=== PATIENT | male | born 1955 | race Two or more races ===

== ENCOUNTER 2020-12-16 10:15 | Emergency (ER) | payer OTHER ==
[2020-12-16 10:29] VITALS: BP 135/66; PULSE 110; TEMP 98.2; BMI 37.0
[2020-12-16] MEDS ORDERED: ACETAMINOPHEN 500 MG TABLET (FP) PO ONE (10:54)
[2020-12-16] MEDS ORDERED: ACETAMINOPHEN 325 MG TABLET (FP) ONE (10:56)
== END 2020-12-16 11:49 | disposition home or self-care (01) ==
LOC: JER 10:15
DX: M79.10 Myalgia, unspecified site (principal)
CPT/HCPCS: 71046-TC-FY; 99284-25; C9803; U0003

== ENCOUNTER 2020-12-19 10:11 | Emergency (ER) | payer OTHER ==
[2020-12-19 10:30] VITALS: BMI 31.1
[2020-12-19] MEDS ORDERED: SODIUM CHLORIDE 0.9% 500 ML INFUS.BAG IV ONE (10:53)
[2020-12-19] MEDS ORDERED: BAMLANIVIMAB 700 MG in SODIUM CHLORIDE 250 ML IVPB ONE (11:40)
[2020-12-19 12:25] LABS: BASO % 0.1 % (0-2.0); EOS % 0.1 % (0-4.5); HEMATOCRIT 42.9 % (35.4-49); HEMOGLOBIN 14.8 GM/dL (11.7-16.9); LYMPH % 7.9 % (8-40); MCH 31.2 pg (25.7-33.7); MCHC 34.6 g/dl (32.0-35.9); MEAN CELL VOLUME 90.3 fl (80-96); MEAN PLT VOLUME 7.1 fl (7.5-11.1); MONO % 10.3 % (3.8-10.2); NEUT % 81.6 % (42.8-82.8); PLATELET COUNT 317 K/MM3 (134-434); RBC 4.75 M/mm3 (4.00-5.60); RDW 12.4 % (11.9-15.9); WHITE BLOOD COUNT 5.1 K/mm3 (4.0-10.0)
[2020-12-19 12:44] LABS: ALBUMIN 3.7 g/dl (3.4-5.0); CALCIUM 8.7 mg/dL (8.5-10.1)
[2020-12-19 12:48] LABS: CREATININE 1.1 mg/dL (0.55-1.3)
[2020-12-19 12:50] LABS: BILIRUBIN,TOTAL 0.4 mg/dL (0.2-1); TOT PROT 7.8 g/dl (6.4-8.2)
[2020-12-19 12:52] LABS: BLOOD UREA NITROGEN 11.2 mg/dL (7-18)
[2020-12-19 15:05] VITALS: BP 126/68; PULSE 85; TEMP 97.8
== END 2020-12-19 15:55 | disposition home or self-care (01) ==
LOC: JCOVINFU 10:11 → JER 10:11 → JCOVINFU 15:55
DX: R53.83 Other fatigue (principal)
CPT/HCPCS: 36415; 80053; 85025; 99284-25; M0239; Q0239

== ENCOUNTER 2021-09-12 23:52 | Observation (INO) | payer OTHER ==
[2021-09-13 02:35] LABS: BASO % 0.2 % (0-2.0); EOS % 0.9 % (0-4.5); HEMATOCRIT 33.6 % (35.4-49); HEMOGLOBIN 11.3 GM/dL (11.7-16.9); MCH 31.3 pg (25.7-33.7); MCHC 33.7 g/dl (32.0-35.9); MEAN PLT VOLUME 7.7 fl (7.5-11.1); MONO % 6.5 % (3.8-10.2); NEUT % 80.4 % (42.8-82.8); PLATELET COUNT 196 10^3/uL (134-434); RBC 3.61 M/mm3 (4.00-5.60); RDW 12.5 % (11.9-15.9); WHITE BLOOD COUNT 8.2 K/mm3 (4.0-10.0)
[2021-09-13 02:46] LABS: INR 0.95 (0.83-1.09); PROTHROMBIN TIME (PATIENT) 11.1 SEC (9.7-13.0)
[2021-09-13 02:48] LABS: ACTIVATED PTT 29.3 SECONDS (25.2-36.5)
[2021-09-13 02:55] LABS: CALCIUM 8.2 mg/dL (8.5-10.1)
[2021-09-13 02:56] LABS: ALBUMIN 3.4 g/dl (3.4-5.0); BLOOD UREA NITROGEN 10.9 mg/dL (7-18); MAGNESIUM 1.8 mg/dL (1.8-2.4)
[2021-09-13 03:00] LABS: BILIRUBIN,TOTAL 0.2 mg/dL (0.2-1)
[2021-09-13 03:01] LABS: TOT PROT 6.9 g/dl (6.4-8.2)
[2021-09-13 03:42] LABS: LACTIC ACID 2.6 mmol/L (0.4-2.0)
[2021-09-13] MEDS ORDERED: LACTATED RINGERS SOLUTION 1,000 ML/1,000 ML INFUS.BAG IV STA (03:46)
[2021-09-13] MEDS ORDERED: SIMETHICONE 40 MG/0.6 ML BOTTLE PO ONE (06:06)
[2021-09-13] MEDS ORDERED: MAG HYDROX/AL HYDROX/SIMETH 30 ML UNIT-DOSE CUP PO PRN (06:33)
[2021-09-13] MEDS ORDERED: TAMSULOSIN HCL 0.4 MG CAP PO ONE (06:34)
[2021-09-13] MEDS ORDERED: SODIUM CHLORIDE 1,000 ML IV SCH (06:45)
[2021-09-13] MEDS ORDERED: ACETAMINOPHEN 1000 MG/100 ML VIAL IVPB PRN (07:06)
[2021-09-13] MEDS: INSULIN (NOVOLOG) ASPART 100 UNITS/ML 10ML VIAL SQ SCH ×2 (07:20→11:21)
[2021-09-13 08:09] LABS: CALCIUM 8.3 mg/dL (8.5-10.1)
[2021-09-13 08:10] LABS: ALBUMIN 3.1 g/dl (3.4-5.0); BLOOD UREA NITROGEN 9.1 mg/dL (7-18); MAGNESIUM 1.8 mg/dL (1.8-2.4)
[2021-09-13 08:13] LABS: PHOSPHOROUS 2.5 mg/dL (2.5-4.9)
[2021-09-13 08:14] LABS: BILIRUBIN,TOTAL 0.3 mg/dL (0.2-1)
[2021-09-13 08:15] LABS: TOT PROT 6.4 g/dl (6.4-8.2)
[2021-09-13 08:25] LABS: LACTIC ACID 2.3 mmol/L (0.4-2.0)
[2021-09-13] MEDS ORDERED: SODIUM CHLORIDE 500 ML IV STA (08:44)
[2021-09-13] MEDS ORDERED: amLODIPine BESYLATE 5 MG TABLET (FP) PO SCH (10:00)
[2021-09-13] MEDS: ENOXAPARIN NA (PORCINE) 40 MG/0.4 ML DISP.SYRIN SQ SCH (11:35)
[2021-09-13 16:41] LABS: LACTIC ACID 3.3 mmol/L (0.4-2.0)
[2021-09-13] MEDS ORDERED: ATENOLOL 25 MG TABLET (FP) ONE (17:15)
[2021-09-13] MEDS: ASPIRIN COATED 81 MG TABLET.EC PO SCH (17:15)
[2021-09-13] MEDS: ATENOLOL 25 MG TABLET (FP) PO SCH (17:15)
[2021-09-13] MEDS ORDERED: ASPIRIN COATED 81 MG TABLET.EC ONE (17:15)
[2021-09-13] MEDS: LISINOPRIL 20 MG TABLET PO SCH (17:15)
[2021-09-13] MEDS ORDERED: LISINOPRIL 20 MG TABLET ONE (17:16)
[2021-09-13] MEDS: INSULIN SLIDING SCALE (NOVOLOG) 1 VIAL SQ SCH ×2 (17:32→21:31)
[2021-09-13 18:35] VITALS: BMI 23.8
[2021-09-13] MEDS ORDERED: ATORVASTATIN CA 10 MG TABLET (FP) PO SCH (22:00)
[2021-09-14] MEDS: INSULIN SLIDING SCALE (NOVOLOG) 1 VIAL SQ SCH ×3 (06:26→16:47)
[2021-09-14 06:38] LABS: PH,URINE 5.5 (5.0-8.0); URINE APPEARANCE CLEAR; URINE BILIRUBIN NEGATIVE (NEGATIVE); URINE COLOR YELLOW; URINE GLUCOSE (UA) NEGATIVE (NEGATIVE); URINE KETONE NEGATIVE (NEGATIVE); URINE LEUK ESTERASE NEGATIVE (NEGATIVE); URINE NITRITE NEGATIVE (NEGATIVE); URINE PROTEIN NEGATIVE (NEGATIVE); URINE UROBILINOGEN 0.2 mg/dL (0.2-1.0)
[2021-09-14] MEDS ORDERED: SODIUM CHLORIDE 1,000 ML IV SCH (07:15)
[2021-09-14 08:00] LABS: HEMATOCRIT 34.5 % (35.4-49); HEMOGLOBIN 11.9 GM/dL (11.7-16.9); MCH 31.6 pg (25.7-33.7); MCHC 34.5 g/dl (32.0-35.9); MEAN CELL VOLUME 91.6 fl (80-96); MEAN PLT VOLUME 7.7 fl (7.5-11.1); PLATELET COUNT 201 10^3/uL (134-434); RBC 3.77 M/mm3 (4.00-5.60); RDW 12.4 % (11.9-15.9); WHITE BLOOD COUNT 5.7 K/mm3 (4.0-10.0)
[2021-09-14 08:17] LABS: CALCIUM 9.1 mg/dL (8.5-10.1)
[2021-09-14 08:18] LABS: MAGNESIUM 1.9 mg/dL (1.8-2.4)
[2021-09-14 08:20] LABS: ALBUMIN 3.3 g/dl (3.4-5.0); BLOOD UREA NITROGEN 8.9 mg/dL (7-18)
[2021-09-14 08:21] LABS: CREATININE 1.1 mg/dL (0.55-1.3)
[2021-09-14 08:23] LABS: PHOSPHOROUS 3.8 mg/dL (2.5-4.9); TOT PROT 6.7 g/dl (6.4-8.2)
[2021-09-14 08:24] LABS: BILIRUBIN,TOTAL 0.4 mg/dL (0.2-1)
[2021-09-14] MEDS ORDERED: TAMSULOSIN HCL 0.4 MG CAP PO SCH ×2 (08:30)
[2021-09-14] MEDS: ASPIRIN COATED 81 MG TABLET.EC PO SCH (09:00)
[2021-09-14] MEDS: ENOXAPARIN NA (PORCINE) 40 MG/0.4 ML DISP.SYRIN SQ SCH (09:01)
[2021-09-14] MEDS: ATENOLOL 25 MG TABLET (FP) PO SCH (09:01)
[2021-09-14] MEDS: LISINOPRIL 20 MG TABLET PO SCH (09:01)
[2021-09-14] MEDS ORDERED: CHLORTHALIDONE 25 MG TABLET PO SCH (10:00)
[2021-09-14 16:13] LABS: LACTIC ACID 2.1 mmol/L (0.4-2.0)
[2021-09-14] MEDS ORDERED: SODIUM CHLORIDE 500 ML IV STA (16:18)
[2021-09-14 18:24] VITALS: BP 143/79; PULSE 64; TEMP 98
== END 2021-09-14 18:24 | disposition home or self-care (01) ==
LOC: JER 23:52 → SUATTDRO 23:52 → JERBED 09-13 06:09 → J4S 09-13 18:08
PROVIDERS: ATTEND Internal Medicine
PROC: 3E033NZ Introduction of Analgesics, Hypnotics, Sedatives into Peripheral Vein, Percutaneous Approach (ICD-10-PCS; principal; 2021-09-13)
PROC: 3E023GC Introduction of Other Therapeutic Substance into Muscle, Percutaneous Approach (ICD-10-PCS; 2021-09-13)
PROC: 3E0337Z Introduction of Electrolytic and Water Balance Substance into Peripheral Vein, Percutaneous Approach (ICD-10-PCS; 2021-09-13)
DX: R10.84 Generalized abdominal pain (principal); R07.89 Other chest pain; R79.89 Other specified abnormal findings of blood chemistry; M54.9 Dorsalgia, unspecified; E11.9 Type 2 diabetes mellitus without complications; I10 Essential (primary) hypertension; N40.0 Benign prostatic hyperplasia without lower urinary tract symptoms; Z86.16 Personal history of COVID-19; Z29.9 Encounter for prophylactic measures, unspecified
CPT/HCPCS: 36415; 71045-TC-FY; 71275-TC; 74174-TC; 80053; 80061; 81003; 82550; 82962; 83036; 83605; 83690; 83735; 83880; 84100; 84484; 85025; 85027; 85610; 85730; 87086; 93005; 93010; 93306-TC; 96361; 96372; 96374; 99285-25; C9803; G0378; J0131; Q9967; U0003; U0005

== ENCOUNTER 2023-10-09 22:24 | Emergency (ER) | payer OTHER ==
[2023-10-09 22:30] VITALS: BP 143/86; PULSE 112; RESP 18; TEMP 97.8; BMI 27.6
[2023-10-10 00:44] LABS: BASO % 1.3 % (0-2.0); EOS % 2.8 % (0-4.5); HEMATOCRIT 39.7 % (35.4-49); HEMOGLOBIN 13.3 GM/dL (11.7-16.9); LYMPH % 18.1 % (8-40); MCH 30.4 pg (25.7-33.7); MCHC 33.3 g/dl (32.0-35.9); MEAN CELL VOLUME 91.1 fl (80-96); MEAN PLT VOLUME 7.3 fl (7.5-11.1); MONO % 10.4 % (3.8-10.2); NEUT % 67.4 % (42.8-82.8); PLATELET COUNT 204 10^3/uL (134-434); RBC 4.36 M/mm3 (4.00-5.60); WHITE BLOOD COUNT 4.8 K/mm3 (4.0-10.0)
[2023-10-10 01:09] LABS: CALCIUM 9.4 mg/dL (8.5-10.1)
[2023-10-10 01:11] LABS: ALBUMIN 3.8 g/dl (3.4-5.0); BLOOD UREA NITROGEN 14.7 mg/dL (7-18); MAGNESIUM 1.9 mg/dL (1.8-2.4); POTASSIUM 4.3 mmol/L (3.5-5.1)
[2023-10-10 01:14] LABS: CREATININE 1.2 mg/dL (0.55-1.3)
[2023-10-10 01:15] LABS: BILIRUBIN,TOTAL 0.3 mg/dL (0.2-1); TOT PROT 7.4 g/dl (6.4-8.2)
[2023-10-10] MEDS ORDERED: KETOROLAC TROMETHAMINE 30 MG/1 ML VIAL IM ONE (02:02)
[2023-10-10] MEDS ORDERED: KETOROLAC TROMETHAMINE 30 MG/1 ML VIAL ONE (02:12)
== END 2023-10-10 02:23 | disposition home or self-care (01) ==
LOC: JER 22:24
PROC: 3E0233Z Introduction of Anti-inflammatory into Muscle, Percutaneous Approach (ICD-10-PCS; principal; 2023-10-10)
DX: G62.9 Polyneuropathy, unspecified (principal)
CPT/HCPCS: 36415; 80053; 82962; 83735; 85025; 99284-25

== ENCOUNTER 2024-03-27 19:36 | Inpatient (IN) | payer OTHER ==
[2024-03-27 19:43] VITALS: BMI 27.2
[2024-03-27] MEDS ORDERED: DIPHTH,PERTUSS(ACELL),TET 0.5 ML DISP.SYRIN IM ONE (20:37)
[2024-03-27] MEDS ORDERED: ACETAMINOPHEN 500 MG TABLET (FP) ONE (20:38)
[2024-03-27] MEDS: ACETAMINOPHEN 500 MG TABLET (FP) PO ONE (20:43)
[2024-03-27] MEDS: DIPHTH,PERTUSS(ACELL),TET 0.5 ML DISP.SYRIN IM ONE (20:44)
[2024-03-27 23:05] LABS: BASO % 0.9 % (0-2.0); EOS % 0.3 % (0-4.5); HEMATOCRIT 40.5 % (35.4-49); HEMOGLOBIN 13.8 GM/dL (11.7-16.9); LYMPH % 9.2 % (8-40); MCH 30.9 pg (25.7-33.7); MEAN PLT VOLUME 7.7 fl (7.5-11.1); MONO % 6.7 % (3.8-10.2); NEUT % 82.9 % (42.8-82.8); PLATELET COUNT 181 10^3/uL (134-434); RBC 4.45 M/mm3 (4.00-5.60); RDW 12.5 % (11.9-15.9)
[2024-03-27 23:16] LABS: INR 0.99 (0.83-1.09); PROTHROMBIN TIME (PATIENT) 11.4 SEC (9.7-13.0)
[2024-03-27] MEDS: BACITRACIN ZINC 15 GM TUBE TOPICAL OINTMENT TP ONE (23:21)
[2024-03-27] MEDS: LIDOCAINE PATCH REMOVAL MC SCH (23:21)
[2024-03-27] MEDS ORDERED: BACITRACIN 0.9 GM PACKET ONE (23:22)
[2024-03-27] MEDS ORDERED: LIDOCAINE 4% PATCH TP ONE (23:23)
[2024-03-27] MEDS ORDERED: BACITRACIN ZINC 15 GM TUBE TOPICAL OINTMENT ONE (23:25)
[2024-03-27 23:26] LABS: POTASSIUM 3.6 mmol/L (3.5-5.1)
[2024-03-27 23:29] LABS: ALBUMIN 3.8 g/dl (3.4-5.0); BLOOD UREA NITROGEN 16.2 mg/dL (7-18)
[2024-03-27] MEDS: LIDOCAINE 4% PATCH TP ONE (23:31)
[2024-03-27 23:32] LABS: CREATININE 1.2 mg/dL (0.55-1.3)
[2024-03-27 23:33] LABS: TOT PROT 7.3 g/dl (6.4-8.2)
[2024-03-27 23:37] LABS: BILIRUBIN,TOTAL 0.4 mg/dL (0.2-1)
[2024-03-28] MEDS: metFORMIN HCL 500 MG TABLET (FP) PO SCH (06:09)
[2024-03-28 07:21] LABS: BASO % 0.2 % (0-2.0); EOS % 0.8 % (0-4.5); HEMOGLOBIN 13.4 GM/dL (11.7-16.9); MCH 31.2 pg (25.7-33.7); MCHC 33.6 g/dl (32.0-35.9); MEAN CELL VOLUME 92.9 fl (80-96); MEAN PLT VOLUME 7.9 fl (7.5-11.1); MONO % 8.6 % (3.8-10.2); NEUT % 79.4 % (42.8-82.8); PLATELET COUNT 177 10^3/uL (134-434); RDW 12.4 % (11.9-15.9); WHITE BLOOD COUNT 7.9 K/mm3 (4.0-10.0)
[2024-03-28 07:40] LABS: POTASSIUM 3.8 mmol/L (3.5-5.1)
[2024-03-28 07:46] LABS: BLOOD UREA NITROGEN 14.1 mg/dL (7-18); CALCIUM 9.4 mg/dL (8.5-10.1)
[2024-03-28 07:49] LABS: CREATININE 1.1 mg/dL (0.55-1.3)
[2024-03-28] MEDS: ENOXAPARIN NA (PORCINE) 40 MG/0.4 ML DISP.SYRIN SQ SCH (09:16)
[2024-03-28] MEDS: TAMSULOSIN HCL 0.4 MG CAP PO SCH (09:21)
[2024-03-28] MEDS: MUPIROCIN 2% TOPICAL OINTMENT FOR DECOLONIZATION NS SCH (09:21)
[2024-03-28] MEDS: GABAPENTIN 100 MG CAPSULE PO SCH (09:21)
[2024-03-28] MEDS: LISINOPRIL 20 MG TABLET PO SCH (10:51)
[2024-03-28] MEDS: ATENOLOL 50 MG TABLET (FP) PO SCH (10:52)
[2024-03-28] MEDS: PNEUMOC 20-VAL CONJ-DIP CRM/PF 0.5 ML SYRINGE IM ONE (11:24)
[2024-03-28] MEDS: ACETAMINOPHEN 325 MG TABLET (FP) PO PRN (13:13)
[2024-03-28] MEDS: CHLORHEXIDINE GLUCONATE 4% CLEANSER FOR DECOLONIZATION TP SCH (21:48)
[2024-03-29 07:54] LABS: CALCIUM 9.5 mg/dL (8.5-10.1)
[2024-03-29 07:55] LABS: BLOOD UREA NITROGEN 13.1 mg/dL (7-18); MAGNESIUM 1.6 mg/dL (1.8-2.4)
[2024-03-29 07:57] LABS: CREATININE 1.1 mg/dL (0.55-1.3)
[2024-03-29 07:58] LABS: PHOSPHOROUS 3.5 mg/dL (2.5-4.9)
[2024-03-29 07:59] LABS: BILIRUBIN,TOTAL 0.7 mg/dL (0.2-1); TOT PROT 7.7 g/dl (6.4-8.2)
[2024-03-29 08:04] LABS: BASO % 0.3 % (0-2.0); EOS % 0.9 % (0-4.5); HEMATOCRIT 43.2 % (35.4-49); HEMOGLOBIN 14.8 GM/dL (11.7-16.9); LYMPH % 16.2 % (8-40); MCH 31.4 pg (25.7-33.7); MCHC 34.2 g/dl (32.0-35.9); MEAN CELL VOLUME 91.8 fl (80-96); MEAN PLT VOLUME 8.2 fl (7.5-11.1); MONO % 8.7 % (3.8-10.2); NEUT % 73.9 % (42.8-82.8); PLATELET COUNT 197 10^3/uL (134-434); RDW 12.5 % (11.9-15.9); WHITE BLOOD COUNT 8.6 K/mm3 (4.0-10.0)
[2024-03-29] MEDS ORDERED: LIDOCAINE HCL 2% 100 MG/5 ML DISP.SYRIN ONE (10:10)
[2024-03-29] MEDS: LIDOCAINE HCL 2% 100 MG/5 ML DISP.SYRIN NR STA (15:54)
[2024-03-29] MEDS: LIDOCAINE 4% PATCH TP SCH (20:07)
[2024-03-29] MEDS: LIDOCAINE PATCH REMOVAL MC SCH (21:14)
[2024-03-30] MEDS: ACETAMINOPHEN 325 MG TABLET (FP) PO PRN (00:38)
[2024-03-30] MEDS: metFORMIN HCL 500 MG TABLET (FP) PO SCH (06:05)
[2024-03-30 09:18] LABS: HEMATOCRIT 40.7 % (35.4-49); HEMOGLOBIN 13.9 GM/dL (11.7-16.9); MCH 31.5 pg (25.7-33.7); MCHC 34.2 g/dl (32.0-35.9); PLATELET COUNT 175 10^3/uL (134-434); RBC 4.42 M/mm3 (4.00-5.60); RDW 12.2 % (11.9-15.9); WHITE BLOOD COUNT 7.6 K/mm3 (4.0-10.0)
[2024-03-30] MEDS: levETIRAcetam 500 MG TABLET (FP) PO SCH (09:23)
[2024-03-30] MEDS: GABAPENTIN 100 MG CAPSULE PO SCH (09:23)
[2024-03-30] MEDS: ATENOLOL 50 MG TABLET (FP) PO SCH (09:23)
[2024-03-30] MEDS: LISINOPRIL 20 MG TABLET PO SCH (09:23)
[2024-03-30] MEDS: TAMSULOSIN HCL 0.4 MG CAP PO SCH (09:24)
[2024-03-30 09:43] LABS: POTASSIUM 3.9 mmol/L (3.5-5.1)
[2024-03-30 09:44] LABS: BLOOD UREA NITROGEN 27.6 mg/dL (7-18); CALCIUM 8.7 mg/dL (8.5-10.1); MAGNESIUM 1.8 mg/dL (1.8-2.4)
[2024-03-30 09:48] LABS: CREATININE 1.4 mg/dL (0.55-1.3); PHOSPHOROUS 3.8 mg/dL (2.5-4.9)
[2024-03-30] MEDS ORDERED: MUPIROCIN 2% TOPICAL OINTMENT FOR DECOLONIZATION NS SCH (10:00)
[2024-03-30] MEDS: INSULIN ASPART SLIDING SCALE (NOVOLOG) 1 VIAL SQ SCH (11:39)
[2024-03-30 13:46] VITALS: RESP 18
[2024-03-30] MEDS ORDERED: LIDOCAINE PATCH REMOVAL MC SCH (22:00)
[2024-03-30] MEDS ORDERED: CHLORHEXIDINE GLUCONATE 4% CLEANSER FOR DECOLONIZATION TP SCH (22:00)
[2024-03-30] MEDS: GABAPENTIN 400 MG CAPSULE PO SCH (22:26)
[2024-03-30] MEDS: ATORVASTATIN CA 10 MG TABLET (FP) PO SCH (22:26)
[2024-03-31] MEDS: GABAPENTIN 300 MG CAPSULE PO SCH (09:56)
[2024-03-31 10:02] LABS: HEMATOCRIT 41.3 % (35.4-49); HEMOGLOBIN 14.1 GM/dL (11.7-16.9); MCH 31.4 pg (25.7-33.7); MCHC 34.1 g/dl (32.0-35.9); MEAN CELL VOLUME 92.2 fl (80-96); MEAN PLT VOLUME 8.2 fl (7.5-11.1); PLATELET COUNT 184 10^3/uL (134-434); RBC 4.48 M/mm3 (4.00-5.60); RDW 12.6 % (11.9-15.9); WHITE BLOOD COUNT 6.2 K/mm3 (4.0-10.0)
[2024-03-31 10:28] LABS: CALCIUM 9.1 mg/dL (8.5-10.1)
[2024-03-31 10:30] LABS: BLOOD UREA NITROGEN 24.1 mg/dL (7-18); MAGNESIUM 2.1 mg/dL (1.8-2.4)
[2024-03-31 10:32] LABS: CREATININE 1.2 mg/dL (0.55-1.3)
[2024-03-31] MEDS ORDERED: ATENOLOL 25 MG TABLET (FP) PO SCH (13:22)
[2024-03-31] MEDS ORDERED: LISINOPRIL 10 MG TABLET PO SCH (13:23)
[2024-03-31 15:42] VITALS: BP 116/65; PULSE 76; TEMP 98.3
[2024-04-01] MEDS ORDERED: TAMSULOSIN HCL 0.4 MG CAP PO SCH (08:30)
== END 2024-03-31 18:54 | disposition home or self-care (01) | DRG 55 ==
LOC: JER 19:36 → UNDOADMIN 22:53 → JERBED 22:53 → JICU 03-28 00:54 → JERBED 03-28 00:54 → JICU 03-28 01:03 → JERBED 03-28 01:03 → J5S 03-29 23:50
PROVIDERS: ADMIT Internal Medicine Pulmonary Disease
DX: S06.5X0A Traumatic subdural hemorrhage without loss of consciousness, initial encounter (principal); S01.01XA Laceration without foreign body of scalp, initial encounter; E78.5 Hyperlipidemia, unspecified; G89.29 Other chronic pain; N40.0 Benign prostatic hyperplasia without lower urinary tract symptoms; I10 Essential (primary) hypertension; E11.9 Type 2 diabetes mellitus without complications; W01.0XXA Fall on same level from slipping, tripping and stumbling without subsequent striking against object, initial encounter; Y93.89 Activity, other specified; Y92.89 Other specified places as the place of occurrence of the external cause; Y99.9 Unspecified external cause status
CPT/HCPCS: 36415; 70450-TC; 70551-TC; 72125-TC; 80048; 80053; 80061; 82962; 83036; 83735; 83880; 84100; 84443; 85025; 85027; 85610; 90677; 90715; 93005; 93010; 97116-GP; 97161-GP; 99285-25; G0009

== ENCOUNTER 2025-07-21 00:09 | Emergency (ER) | payer OTHER ==
[2025-07-21 00:20] VITALS: BP 139/78; PULSE 92; RESP 20; TEMP 98.8; BMI 27.2
[2025-07-21 01:18] LABS: ABSOLUTE IMMATURE GRANULOCYTES 0.04 x10^3/uL (0.0-0.031); BASOPHILS # 0.03 x10^3/uL (0.01-0.08); EOSINOPHIL % 1.5 % (0.8-7.0); EOSINOPHILS # 0.12 x10^3/uL (0.04-0.54); MCHC 31.5 g/dl (32.3-36.5); MEAN CELL VOLUME 92.7 fl (79.0-92.2); MEAN PLT VOLUME 9.7 fl (9.4-12.4); MONOCYTE # 0.76 x10^3/uL (0.30-0.82); MONOCYTE % 9.4 % (5.3-12.2); RDW 12.6 % (12.2-16.4)
[2025-07-21 01:20] LABS: URINE APPEARANCE CLEAR; URINE BILIRUBIN NEGATIVE (NEGATIVE); URINE COLOR YELLOW; URINE GLUCOSE (UA) 3+ (NEGATIVE); URINE KETONE NEGATIVE (NEGATIVE); URINE LEUK ESTERASE NEGATIVE (NEGATIVE); URINE NITRITE NEGATIVE (NEGATIVE); URINE PROTEIN NEGATIVE (NEGATIVE); URINE UROBILINOGEN 0.2 mg/dL (0.2-1.0)
[2025-07-21] MEDS ORDERED: ACETAMINOPHEN INJECTION 100 ML ONE (01:28)
[2025-07-21] MEDS: ACETAMINOPHEN 1000 MG/100 ML BAG IVPB ONE (01:30)
[2025-07-21 01:48] LABS: CO2 23.0 mmol/L (21-32); GLUCOSE,RANDOM 141.0 mg/dL (74-106); TOT PROT 6.9 g/dl (6.4-8.2)
[2025-07-21 01:50] LABS: ALK PHOS 99.0 U/L (40-150)
[2025-07-21 01:53] LABS: CREATININE 1.09 mg/dL (0.55-1.3); SGOT/AST 25.0 U/L (5-34); SGPT/ALT 24.0 U/L (0-55)
[2025-07-21] MEDS: MINERAL OIL ENEMA 133 ML ENEMA RC ONE (01:56)
[2025-07-21 03:19] LABS: HCV DIAGNOSTIC IN-HOUSE W/RFLX NON-REACTIVE (NONREACTIVE)
[2025-07-21 03:20] LABS: HIV INTERPRETATION NEGATIVE (NEGATIVE)
== END 2025-07-21 02:17 | disposition home or self-care (01) ==
LOC: JER 00:09
PROC: 3E033NZ Introduction of Analgesics, Hypnotics, Sedatives into Peripheral Vein, Percutaneous Approach (ICD-10-PCS; principal; 2025-07-21)
DX: R10.A1 Flank pain, right side (principal); M54.50 Low back pain, unspecified; R10.24 Suprapubic pain
CPT/HCPCS: 36415; 74176-TC; 80053; 81003; 85025; 86803; 87086; 87389; 99285-25

== ENCOUNTER 2025-08-10 16:15 | Emergency (ER) | payer OTHER ==
[2025-08-10 16:23] VITALS: BP 166/90; PULSE 80; RESP 18; TEMP 98.2; BMI 25.1
== END 2025-08-10 16:55 | disposition home or self-care (01) ==
LOC: JERFT 16:15
DX: J02.9 Acute pharyngitis, unspecified (principal); L73.9 Follicular disorder, unspecified; R07.0 Pain in throat; R22.0 Localized swelling, mass and lump, head
CPT/HCPCS: 87651; 99283-25